=== PATIENT | female | born 1960 | race Caucasian/White ===

== ENCOUNTER → 2022-04-07 | Outpatient (CLI) | payer MEDICARE, OTHER, SELFPAY ==
[2022-04-07 15:11] LABS: Absolute Lymphocyte Count 2.47 X10^3/uL (0.83-4.51); Absolute Neutrophil Count 3.7 X10^3/uL (2.0-7.7); Basophil# 0.02 X10^3/uL; Basophil% 0.3 % (0-1); Eosinophil# 0.08 X10^3/uL; Eosinophils% 1.2 % (0-5); Hematocrit 42.9 % (37-47); Hemoglobin 13.8 g/dL (12.0-15.0); Lymphocyte # 2.47 X10^3/ul (0.83-4.51); Lymphocyte % 36.5 % (19-41); Mean Corp Hgb Conc 32.2 g/dL (32-36); Mean Corpuscular Hgb 30.5 pg (27.0-32.0); Mean Corpuscular Volume 94.7 fL (81-99); Mean Platelet Vol. 10.6 fl (6.2-12.0); Monocyte# 0.52 X10^3/uL; Monocyte% 7.7 % (0-10); NRBC Flagged by Analyzer 0 % (0-5); Neutrophil # 3.67 X10^3/uL (2.7-7.7); Neutrophil % 54.2 % (47-70); Platelet Count 260 K/mm3 (150-450); RBC Distribution Width CV 12.3 % (11.6-14.6); Red Blood Count 4.53 M/mm3 (4.2-5.4); White Blood Count 6.8 K/mm3 (4.4-11.0)
[2022-04-07 15:12] LABS: Erythrocyte Sedimentation Rate 8 mm/hr (0-30)
[2022-04-07 15:16] LABS: Hemoglobin A1c 5.5 % (3.8-5.6)
[2022-04-07 15:34] LABS: Vitamin B12 650 pg/mL (211-911)
[2022-04-07 15:48] LABS: ALB/GLOB Ratio 1.2 RATIO (0.9-2.4); AST(SGOT) 19 U/L (15-37); Alanine Aminotransfer ALT/SGPT 27 U/L (13-56); Albumin, Serum 3.8 g/dL (3.2-5.0); Alkaline Phosphatase 85 U/L (45-117); Anion Gap 5 (5-15); BUN 21 mg/dL (7-18); BUN/Creat Ratio 22.9 RATIO (10-20); CRP < 2.90 mg/L (0.0-3.0); Calcium,Total 8.9 mg/dL (8.5-10.1); Chloride 105 mmol/L (98-107); Creatinine, Serum 0.92 mg/dL (0.55-1.02); EST Glomerular Filtration Rate 66 mL/min (>60); Est Glom Filt Rate - Afr Amer 80 mL/min (>60); Free T3 3.3 pg/mL (2.18-3.98); Globulin 3.2 g/dL (2.2-4.2); Glucose 84 mg/dL (74-106); LDH 179 U/L (84-246); Potassium 3.5 mmol/L (3.5-5.1); Sodium Level 140 mmol/L (136-145); T4 Free Direct 0.89 ng/dL (0.76-1.46); Thyroid Stim Hormone (TSH) 1.89 uIU/mL (0.358-3.74)
[2022-04-10 13:07] LABS: Endomysial Antibody IgA Negative (Negative)
[2022-04-10 15:07] LABS: Anti-Centromere B Ab <0.2 AI (0.0-0.9); Anti-Chromatin <0.2 AI (0.0-0.9); Anti-Jo <0.2 AI (0.0-0.9); Anti-Scleroderma-70 AB <0.2 AI (0.0-0.9); RNP Ab 4.1 AI (0.0-0.9); SJOGREN'S Anti-SS-A test < 0.2 AI (0.0-0.9); SJOGREN'S Anti-SS-B test < 0.2 AI (0.0-0.9); Smith Ab <0.2 AI (0.0-0.9)
[2022-04-11 15:12] LABS: Anti-dsDNA Ab 1 IU/mL (0-9)
[2022-04-11 15:15] LABS: Immunoglobulin A 97 mg/dL (87-352); t-Transglutaminase IgA <2 U/mL (0-3)
[2022-04-12 08:09] LABS: Albumin 3.9 g/dL (2.9-4.4); Alpha-1-Globulins 0.2 g/dL (0.0-0.4); Alpha-2-Globulins 0.7 g/dL (0.4-1.0); Cytoplasmic Ab (C-ANCA) <1:20 titer (Neg:<1:20); HEPATITIS B SURFACE AG Negative (Negative); Hep C Antibodies <0.1 s/co ratio (0.0-0.9); Hepatitis A IgM Antibody Negative (Negative); Hepatitis B Core AB IgM Negative (Negative); Immunoglobulin A 97 mg/dL (87-352); Immunoglobulin G 920 mg/dL (586-1602); Immunoglobulin M 62 mg/dL (26-217); PROEL- TOTAL PROTEIN 6.5 g/dL (6.0-8.5)
[2022-04-12 13:10] LABS: Immunoglobulin E 138 IU/mL (6-495); Perinuclear Ab (P-ANCA) <1:20 titer (Neg:<1:20)
== END | disposition home or self-care (01) ==
PROVIDERS: Visit Provider Internal Medicine Gastroenterology
DX: R11.2 Nausea with vomiting, unspecified (principal)
CPT/HCPCS: 36415; 80053; 80074; 82607; 82784; 82785; 83036; 83516; 83615; 84165; 84439; 84443; 84481; 85025; 85652; 86140; 86225; 86235; 86255; 86256; 86334

== ENCOUNTER 2022-04-13 05:23 | Day surgery (SDC) | payer MEDICARE, OTHER, SELFPAY ==
[2022-04-13] VITALS (7 sets, daily range): BP systolic 92–104; BP diastolic 67–72; PULSE 65–74; RESP 14–18; TEMP 36.6–36.9; O2SAT 97–100; BMI 24.9
[2022-04-13] MEDS: Lactated Ringers 1,000 ML 15 ML IV (05:53)
--- NOTE | 2022-04-13 06:30 | IMM_PTH ---
PATIENT: PERRY KHAN LOC: EN U#:[id number] AGE/SX: 61/F ROOM: RE04/13/[address]: Dr. Shadi Hernández DO : 1960 BED: DIS: 04/13/2022 SPEC #: [id number] RECD: 04/13/22 13:44 STATUS: DEVENDRA REQ #: [id number] NORA: 04/13/22 06:[address]: Shadi Hernández DEPT: IMMUNOHISTOCHEMISTRY RECD BY: Oriana Dyson ENTERED: 04/13/22 13:45 SP TYPE: IMMUNO OTHR DR: Gi Primary Care Phys Tissues: A - Stomach, NOS Procedures: H Pylori (initial) PHYSICIAN & INSTITUTION [place] [address] SPECIMEN INFORMATION: Tissue Source: A ? Gastric body Clinical Info: Nausea and vomiting Specimen Number: [id number] CPT code: 84980 METHODOLOGY: Deparaffinized sections of prefer/formalin-fixed tissue or PAP/DQ stained slides are incubated with monoclonal/polyclonal antibodies/oligonucleotide probes. Localization is made via biotin free immunoperoxidase method. Appropriate controls are performed and reacted as expected. Results on target cell population are indicated in the following table: RESULTS: ANTIBODY / CLONE RESULT Block A H Pylori (polyclonal) positive These tests were developed and their performance characteristics determined by [facility]. They may not have been cleared or approved by the U.S. Food and Drug Administration. The FDA has determined that such clearance or approval is not necessary. The above immunohistochemical/dualISH markers are ordered and reviewed by the Pathologist. INTERPRETATION: A. Gastric body, biopsy: Positive for Helicobacter pylori organisms. AM:tiana 04/14/2022
--- NOTE | 2022-04-13 06:30 | EGD_PTH ---
PATIENT: PERRY KHAN LOC: EN U#:[id number] AGE/SX: 61/F ROOM: RE04/13/[address]: Dr. Shadi Hernández DO : 1960 BED: DIS: 04/13/2022 SPEC #: [id number] RECD: 04/13/22 09:08 STATUS: DEVENDRA REPawan #: [id number] NORA: 04/13/22 06:[address]: Shadi Hernández DEPT: SURGICAL PATHOLOGY RECD BY: Marianna Fernandez ENTERED: 04/13/22 10:43 SP TYPE: EGD BIOPSY OT DR: Gi Primary Care Phys Tissues: A - Gastric mucous membrane B - Gastric mucous membrane C - Duodenum, NOS D - Esophagus, NOS Procedures: Surgery Specimen Level IV HEADER OPERATION: EGD (MAC) and biopsy and dilatation PRE-OP DIAGNOSIS: Nausea and vomiting TISSUE SUBMITTED: A ? Gastric body, B ? Gastric cardia, C ? Duodenum, D ? Distal esophagus MICROSCOPIC DIAGNOSIS A. Gastric body, biopsy: Chronic gastritis, marked. Positive for Helicobacter pylori organisms. See comment. B. Gastric cardia, biopsy: Chronic gastritis, marked. See comment. C. 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 D. Distal esophagus, biopsy: Gastroesophageal junctional mucosa with chronic inflammation. Focal changes of reflux. Focal goblet cell metaplasia. No evidence of dysplasia. AM:tiana 04/14/2022 COMMENT A. The results of immunohistochemistry for Helicobacter pylori will be reported separately ([id number]). B. Rare neutrophils are seen in glandular epithelium. D. Alcian blue/PAS stain with matched control supports the above diagnosis. MICROSCOPIC DESCRIPTION Slides are reviewed. GROSS DESCRIPTION A - Received in fixative is one container labeled with the patient's name and designated gastric body. The specimen consists of two irregular fragments of light phillips soft tissue that in aggregate measure 0.6 x 0.5 x 0.1 cm. The specimen is totally submitted in one cassette. B - Received in fixative is one container labeled with the patient's name and designated gastric cardiac biopsy. The specimen consists of multiple irregular fragments of light phillips soft tissue that in aggregate measure 0.7 x 0.7 x 0.1 cm. The specimen is totally submitted in one cassette. C - Received in fixative is one container labeled with the patient's name and designated duodenum biopsy. The specimen consists of one irregular fragment of light phillips soft tissue that measures 0.7 x 0.2 x 0.1 cm. The specimen is totally submitted in one cassette. D - Received in fixative is one container labeled with the patient's name and designated distal esophagus biopsy. The specimen consists of two irregular fragments of light phillips soft tissue that in aggregate measure 1 x 0.5 x 0.1 cm. The specimen is totally submitted in one cassette. / AM:tiana 04/13/2022 TC:3 CPT: 46460 x4, 40981
--- NOTE | 2022-04-13 06:32 | PCM.HP.BLA ---
History and Physical Date of Admission: 04/13/22 PERRY KHAN, is a 61 F who presents to the office today for Initial consult. Bonny established with this clinic 04.07.22. GI Hx H.pylori infection PMH Thromboangiitis PSH hysterectomy; cholecystectomy EGD history noting hiatal hernia, peptic ulcer disease, GERD. Reports 12-15 EGD with positive H.Pylori. Last EGD approximately 7 years prior. ? H.Pylori has been treated with antibiotics regularly throughout the years. Gnawing pain in stomach, gassy and belching, nausea, bloating. Foods and pills have been getting stuck, reports strictures in her esophagus and has undergone dilation approximately 12 times throughout the years. She does not wish to pursue screening colonoscopy ROS Const Constitutional: No anorexia, fatigue, fever(s), weight change or sleep problems Eyes Eyes: No change in vision ENT ENT: No abnormal hearing, difficulty swallowing, mouth lesions, tongue swelling or throat swelling Resp Respiratory: No cough or shortness of breath Cardio Cardiology: No chest pain at rest, chest pain with exertion, shortness of breath or dyspnea on exertion Gastro GI: No difficulty swallowing Genitourinary-Female: No difficulty urinating or burning urination Musc Musculoskeletal: No joint pain, joint swelling, muscle weakness or decreased muscle mass Skin Skin: No hair loss in leg, yellowing of the eye, itchy eyes, rash, skin ulcer or skin swelling Neuro Neurology: No abnormal hearing, abnormal movements, confusion, unsteady gait/balance or memory loss Psych Psychiatric: No anxiety, No confusion and No memory loss Endo Endocrine: No fatigue or weight change Aller/Imm Allergy/Immunologic: No itchy eyes, throat swelling or tongue swelling Kody/Lymp Hematologic/Lymphatic: No easy bleeding, easy bruising or enlarged lymph nodes Exam Const General: cooperative and comfortable Nutritional Appearance: average body habitus and well nourished HENMT Head: normal to inspection Ears: hearing grossly normal bilaterally Nose: external nose normal Face and sinus: normal facial exam Mouth: oral mucosae normal Throat: posterior oropharynx normal Eyes General: appearance normal, both eyes and all related structures Neck Neck: normal visual inspection Chest Chest palpation & inspection: normal inspection of the chest and normal palpation of entire chest wall Resp Effort & Inspection: normal respiratory effort Auscultation: Bilateral: Clear to Auscultation Cardio Palpation: normal PMI Rate: regular rate Rhythm: regular rhythm GI Inspection: normal to inspection Auscultation: normal bowel sounds Percussion: normal to percussion Palpation: no hepatosplenomegaly Skin General: no rashes or lesions noted Neuro General: patient alert Extrem General: normal to inspection Psych Affect: normal affect Assessment and Plan Assessment and Plan (1) Nausea & vomiting: ?Status:?Acute ?Plan: The differential diagnosis for her nausea vomiting could be secondary to previous diagnosis of bulimia and constant nausea vomiting.? Also on the differential diagnosis could include gastroparesis, food allergies, eosinophilic gastroenteritis or anxiety disorder.? We will get a gastric emptying study along with a biochemical work-up to make sure she does not have any autoimmune disease that may affect her upper GI tract. (2) H. pylori infection: ?Status:?Acute ?Plan: Recurrent H. pylori infection.? She will undergo an upper endoscopy with biopsies in all 5 quadrants to see if it is primarily located in a certain area of the stomach.? If it is she can undergo ablation of that particular area.? We will also sample the small bowel. ? ? ? Orders: Orders Vitamin B12 Today R11.2 - Nausea with vomiting, unspecified ? Comprehensive Metabolic Profil Today R11.2 - Nausea with vomiting, unspecified ? CRP Today R11.2 - Nausea with vomiting, unspecified ? Free T3 Today R11.2 - Nausea with vomiting, unspecified ? LDH Today R11.2 - Nausea with vomiting, unspecified ? T4 Free Direct Today R11.2 - Nausea with vomiting, unspecified ? Thyroid Stim Hormone (TSH) Today R11.2 - Nausea with vomiting, unspecified ? CBC W/Diff, Automated Today R11.2 - Nausea with vomiting, unspecified ? Erythrocyte Sed Rate Today R11.2 - Nausea with vomiting, unspecified ? AMBER Comprehensive Panel Today R11.2 - Nausea with vomiting, unspecified ? ANCA Today R11.2 - Nausea with vomiting, unspecified ? Celiac Disease Profile Today R11.2 - Nausea with vomiting, unspecified ? Immunoglobulin E Today R11.2 - Nausea with vomiting, unspecified ? Hemoglobin A1c Today R11.2 - Nausea with vomiting, unspecified ? Hepatitis Panel Acute Today R11.2 - Nausea with vomiting, unspecified ? MASSIEL + Protein Elect, Serum Today R11.2 - Nausea with vomiting, unspecified ? Gastric Emptying Study Today R11.2 - Nausea with vomiting, unspecified ? I have examined the patient and the H&P has been reviewed. There are no clinical changes since date of exam.
--- NOTE | 2022-04-13 06:55 | OP.CCLET_ITS ---
04/13/2022 No Primary Care Physician Re : Upper GI endoscopy procedure for Maria T Navarro Dear Care Physician This procedure was performed on April. My impressions and recommendations are as follows: Impressions : - LA Grade A reflux esophagitis. Biopsied. - Moderate Schatzki ring. Dilated. - Gastritis. Biopsied. - Erythematous duodenopathy. Biopsied. No specimens collected. Recommendations : - Discharge patient to home. - Resume previous diet. - Continue present medications. - Await pathology results. - Use Protonix (pantoprazole) 40 mg PO BID for 8 weeks. My findings are described in the full procedure note, which is enclosed. If I can be of further assistance, please feel free to contact me at . Sincerely, Shadi Hernández, 04/13/2022 6:54:17 AM This report has been signed electronically.
--- NOTE | 2022-04-13 06:55 | OP.EGD_ITS ---
Patient Name: Maria T Navarro Procedure Date: 04/13/2022 6:15 AM Date of : 1960 Age: 61 Procedure: Upper GI endoscopy Indications: Dysphagia, Heartburn, Failure to respond to medical treatment, Positive test for Helicobacter pylori Providers: Shadi Hernández DO Medicines: Monitored Anesthesia Care Patient Profile: This is a 61 year old female. Refer to note in patient chart for documentation of history and physical. Patient has symptoms of chronic heartburn and chronic nausea. Complications: No immediate complications. Procedure: Pre-Anesthesia Assessment: - Prior to the procedure, a History and Physical was performed, and patient medications and allergies were reviewed. The patient is competent. The risks and benefits of the procedure and the sedation options and risks were discussed with the patient. All questions were answered and informed consent was obtained. Patient identification and proposed procedure were verified by the physician in the pre-procedure area. Mental Status Examination: alert and oriented. Airway Examination: normal oropharyngeal airway and neck mobility. Respiratory Examination: clear to auscultation. CV Examination: normal. Prophylactic Antibiotics: The patient does not require prophylactic antibiotics. Prior Anticoagulants: The patient has taken no previous anticoagulant or antiplatelet agents. ASA Grade Assessment: II - A patient with mild systemic disease. After reviewing the risks and benefits, the patient was deemed in satisfactory condition to undergo the procedure. The anesthesia plan was to use monitored anesthesia care (MAC). Immediately prior to administration of medications, the patient was re-assessed for adequacy to receive sedatives. The heart rate, respiratory rate, oxygen saturations, blood pressure, adequacy of pulmonary ventilation, and response to care were monitored throughout the procedure. The physical status of the patient was re-assessed after the procedure. After obtaining informed consent, the endoscope was passed under direct vision. Throughout the procedure, the patient's blood pressure, pulse, and oxygen saturations were monitored continuously. The gastroscope was introduced through the mouth, and advanced to the second part of duodenum. The upper GI endoscopy was accomplished without difficulty. The patient tolerated the procedure well. Scope In: 6:38:55 AM Scope Out: 6:45:44 AM Total Procedure Duration Time 0 hours 6 minutes 49 seconds Findings: LA Grade A (one or more mucosal breaks less than 5 mm, not extending between tops of 2 mucosal folds) esophagitis with no bleeding was found 36 to 38 cm from the incisors. Biopsies were taken with a cold forceps for histology. Verification of patient identification for the specimen was done. Estimated blood loss was minimal. A moderate Schatzki ring was found in the lower third of the esophagus. A guidewire was placed and the scope was withdrawn. Dilation was performed with a Savary dilator with no resistance at 60 Fr. The dilation site was examined and showed complete resolution of luminal narrowing. Estimated blood loss was minimal. Scattered moderate inflammation characterized by congestion (edema) was found in the cardia and in the gastric body. Biopsies were taken with a cold forceps for histology. Verification of patient identification for the specimen was done. Estimated blood loss was minimal. Patchy mildly erythematous mucosa without active bleeding and with no stigmata of bleeding was found in the duodenal bulb and in the first portion of the duodenum. Biopsies were taken with a cold forceps for histology. No biopsies or other specimens were collected for this exam. Impression: - LA Grade A reflux esophagitis. Biopsied. - Moderate Schatzki ring. Dilated. - Gastritis. Biopsied. - Erythematous duodenopathy. Biopsied. No specimens collected. Recommendation: - Discharge patient to home. - Resume previous diet. - Continue present medications. - Await pathology results. - Use Protonix (pantoprazole) 40 mg PO BID for 8 weeks. Procedure Code(s): --- Professional --- 47245, Esophagogastroduodenoscopy, flexible, transoral; with insertion of guide wire followed by passage of dilator(s) through esophagus over guide wire 96880, 59, Esophagogastroduodenoscopy, flexible, transoral; with biopsy, single or multiple CPT copyright 2017 [employer]. All rights reserved. The codes documented in this report are preliminary and upon component assembler supervisor review may be revised to meet current compliance requirements. Shadi Hernández DO 04/13/2022 6:54:17 AM This report has been signed electronically. Number of Addenda: 0 Note Initiated On: 04/13/2022 6:15 AM
== END 2022-04-13 07:54 | disposition home or self-care (01) ==
LOC: EN 05:25 → AC 05:26
PROVIDERS: Visit Provider Internal Medicine Gastroenterology
PROC: 0DJ08ZZ Inspection of Upper Intestinal Tract, Via Natural or Artificial Opening Endoscopic (ICD-10-PCS; CPT 43235; principal; 2022-04-13 06:25)
DX: K22.2 Esophageal obstruction (principal); K21.00 Gastro-esophageal reflux disease with esophagitis, without bleeding; B96.81 Helicobacter pylori [H. pylori] as the cause of diseases classified elsewhere; K29.50 Unspecified chronic gastritis without bleeding; R13.10 Dysphagia, unspecified
CPT/HCPCS: 43248; 43239; 88305; 88342; J7120; C1769; J2405

== ENCOUNTER → 2022-10-27 | Outpatient (CLI) | payer MEDICARE, OTHER, SELFPAY | END | disposition home or self-care (01) | LOC: LAB 13:53 | PROVIDERS: Referring Provider Internal Medicine Gastroenterology; Visit Provider Internal Medicine Gastroenterology | DX: A04.8 Other specified bacterial intestinal infections (principal) ==

== ENCOUNTER 2022-11-17 12:47 | Day surgery (SDC) | payer MEDICARE, OTHER, SELFPAY ==
--- NOTE | 2022-11-17 | IMM_PTH ---
PATIENT: PERRY KHAN LOC: EN U#:[id number] AGE/SX: 61/F ROOM: RE11/17/[address]: Dr. Shadi Hernández DO : 1960 BED: DIS: 11/17/2022 SPEC #: [id number] RECD: 11/20/22 14:48 STATUS: DEVENDRA REPawan #: [id number] NORA: 11/17/22 00:[address]: Shadi Hernández DEPT: IMMUNOHISTOCHEMISTRY RECD BY: Alejandra Virk ENTERED: 11/20/22 14:48 SP TYPE: IMMUNO OTHR DR: Gi Primary Care Phys Tissues: Gastric mucous membrane Procedures: H Pylori (initial) PHYSICIAN & INSTITUTION [place] [address] SPECIMEN INFORMATION: Tissue Source: Gastric body Clinical Info: H.pylori infection Specimen Number: [id number] CPT code: 42707 METHODOLOGY: Deparaffinized sections of prefer/formalin-fixed tissue or PAP/DQ stained slides are incubated with monoclonal/polyclonal antibodies/oligonucleotide probes. Localization is made via biotin free immunoperoxidase method. Appropriate controls are performed and reacted as expected. Results on target cell population are indicated in the following table: RESULTS: ANTIBODY / CLONE RESULT H Pylori (polyclonal) positive These tests were developed and their performance characteristics determined by [facility]. They may not have been cleared or approved by the U.S. Food and Drug Administration. The FDA has determined that such clearance or approval is not necessary. The above immunohistochemical/dualISH markers are ordered and reviewed by the Pathologist. INTERPRETATION: Gastric body, biopsy: Positive for numerous Helicobacter pylori organisms. SJ:chito 11/22/22
[2022-11-17] MEDS: Lactated Ringers 1,000 ML 15 ML IV (13:13)
[2022-11-17 13:14] VITALS: BP 106/63; PULSE 75; RESP 18; TEMP 37.1; O2SAT 100; BMI 24.8
--- NOTE | 2022-11-17 13:50 | HP.PCM_ITS ---
History and Physical Date of Admission: 11/17/22 PERRY KHAN, is a 61 F who presents to the office today for GI Hx H.pylori infection. PMH Thromboangiitis. PSH hysterectomy; cholecystectomy EGD history noting hiatal hernia, peptic ulcer disease, GERD. *[facility] established 04.07.22. Reports 12-15 EGDs with positive H.Pylori. Last EGD approximately 7 years prior. ? H.Pylori has been treated with antibiotics regularly throughout the years. Gnawing pain in stomach, gassy and belching, nausea, bloating. Foods and pills have been getting stuck, reports strictures in her esophagus and has undergone dilation approximately 12 times throughout the years. Biochemical workup GAME, MASSIEL, hepatitis, ANCA, CBC, ESR, CMP, A1c, LDH, CRP, Vit B12, TSH, T3, T4, celiac without pertinent abnormality. GLACING MACHINE TENDER Ab H4.1 Refer to rheumatology, Dr. De La Cruz. Dr. De La Cruz attempted to schedule apt but calls were not returned. EGD 04.13.22 noting LA Grade A reflux esophagitis, metaplasia; Moderate Schatzki ring, Savary dilator 60F; gastritis, H.Pylori +; erythematous duodenopathy, Hannah gland hyperplasia. Protonix 40mg BID taper. 04.17.22 peptobismol Q8H, Clarithromycin 500mg BID, flagyl 375 Q8H. Flagyl expensive. Changed to amoxicillin. ? Follow up scheduled for 06.21.22 which was rescheduled to a later time. OV 10.27.22 continues to have bloating, pain and heartburn similar as to initial presentation. Reports H.Pylori for the last 20 years. ROS Const Constitutional: No anorexia, fatigue, fever(s), weight change or sleep problems Eyes Eyes: No change in vision ENT ENT: No abnormal hearing, difficulty swallowing, mouth lesions, tongue swelling or throat swelling Resp Respiratory: No cough or shortness of breath Cardio Cardiology: No chest pain at rest, chest pain with exertion, shortness of breath or dyspnea on exertion Gastro GI: No difficulty swallowing Genitourinary-Female: No difficulty urinating or burning urination Musc Musculoskeletal: No joint pain, joint swelling, muscle weakness or decreased muscle mass Skin Skin: No hair loss in leg, yellowing of the eye, itchy eyes, rash, skin ulcer or skin swelling Neuro Neurology: No abnormal hearing, abnormal movements, confusion, unsteady gait/balance or memory loss Psych Psychiatric: No anxiety, No confusion and No memory loss Endo Endocrine: No fatigue or weight change Aller/Imm Allergy/Immunologic: No itchy eyes, throat swelling or tongue swelling Kody/Lymp Hematologic/Lymphatic: No easy bleeding, easy bruising or enlarged lymph nodes Exam Const General: cooperative and comfortable Nutritional Appearance: average body habitus and well nourished HENMT Head: normal to inspection Ears: hearing grossly normal bilaterally Nose: external nose normal Face and sinus: normal facial exam Mouth: oral mucosae normal Throat: posterior oropharynx normal Eyes General: appearance normal, both eyes and all related structures Neck Neck: normal visual inspection Chest Chest palpation & inspection: normal inspection of the chest and normal palpation of entire chest wall Resp Effort & Inspection: normal respiratory effort Auscultation: Bilateral: Clear to Auscultation Cardio Palpation: normal PMI Rate: regular rate Rhythm: regular rhythm GI Inspection: normal to inspection Auscultation: normal bowel sounds Percussion: normal to percussion Palpation: no hepatosplenomegaly Skin General: no rashes or lesions noted Neuro General: patient alert Extrem General: normal to inspection Psych Affect: normal affect Quality Reporting Tobacco Screening ([facility] 138) Smoking Status: Never smoker Assessment and Plan Assessment and Plan (1) H. pylori infection: Status: Chronic Plan: She underwent an upper endoscopy and was diagnosed again with H. pylori associated gastritis. She does have anti-GLACING MACHINE TENDER antibodies that I believe are autoantibody secondary to chronic H. pylori infection over 30 years. I want to get antibiotic susceptibility testing but we might have to do that with a grow specimen and not with a blood culture for H. pylori. For now we will run a culture for H. pylori and check to the [facility] test for susceptibility testing. Orders: Orders Miscellaneous Lab Procedure Today R76.8 - Other specified abnormal immunological findings in serum I have examined the patient and the H&P has been reviewed. There are no clinical changes since date of exam.
--- NOTE | 2022-11-17 14:00 | EGD_PTH ---
PATIENT: PERRY KHAN LOC: EN U#:[id number] AGE/SX: 61/F ROOM: RE11/17/[address]: Dr. Shadi Hernández DO : 1960 BED: DIS: 11/17/2022 SPEC #: [id number] RECD: 11/17/22 17:40 STATUS: DEVENDRA REQ #: [id number] NORA: 11/17/22 14:[address]: Shadi Hernández DEPT: SURGICAL PATHOLOGY RECD BY: Marianna Fernandez ENTERED: 11/20/22 08:39 SP TYPE: EGD BIOPSY OT DR: Gi Primary Care Phys Tissues: Gastric mucous membrane Procedures: Surgery Specimen Level IV HEADER OPERATION: EGD with biopsies PRE-OP DIAGNOSIS: H.pylori infection TISSUE SUBMITTED: Gastric body biopsy MICROSCOPIC DIAGNOSIS Gastric body biopsy: Moderate chronic active gastritis. See comment. SJ: 11/21/2022 COMMENT The results of immunohistochemistry for Helicobacter pylori will be reported separately ([id number]). MICROSCOPIC DESCRIPTION Slides are reviewed. GROSS DESCRIPTION Received is one container labeled with the patient name and designated gastric body. The specimen consists of multiple irregular fragments of light phillips soft tissue that in aggregate measure 0.8 x 0.4 x 0.1 cm. The specimen is totally submitted in one cassette. / SJ: 11/20/22 TC:2 CPT:36779
--- NOTE | 2022-11-17 14:13 | OP.EGD_ITS ---
Patient Name: Maria T Navarro Procedure Date: 11/17/2022 1:55 PM Date of : 1960 Age: 61 Procedure: Upper GI endoscopy Indications: Epigastric abdominal pain, Helicobacter pylori Providers: Shadi Hernández DO Referring MD: No Primary Care Physician Patient Profile: This is a 61 year old female. Refer to note in patient chart for documentation of history and physical. Patient has symptoms. The symptoms first began in the remote past. She is status post EGD for biopsy within the past three months. Complications: No immediate complications. Procedure: Pre-Anesthesia Assessment: - Prior to the procedure, a History and Physical was performed, and patient medications and allergies were reviewed. The patient is competent. The risks and benefits of the procedure and the sedation options and risks were discussed with the patient. All questions were answered and informed consent was obtained. Patient identification and proposed procedure were verified by the physician. Mental Status Examination: normal. Prophylactic Antibiotics: The patient does not require prophylactic antibiotics. Prior Anticoagulants: The patient has taken no previous anticoagulant or antiplatelet agents. ASA Grade Assessment: II - A patient with mild systemic disease. After reviewing the risks and benefits, the patient was deemed in satisfactory condition to undergo the procedure. The anesthesia plan was to use monitored anesthesia care (MAC). Immediately prior to administration of medications, the patient was re-assessed for adequacy to receive sedatives. The heart rate, respiratory rate, oxygen saturations, blood pressure, adequacy of pulmonary ventilation, and response to care were monitored throughout the procedure. The physical status of the patient was re-assessed after the procedure. After obtaining informed consent, the endoscope was passed under direct vision. Throughout the procedure, the patient's blood pressure, pulse, and oxygen saturations were monitored continuously. The gastroscope was introduced through the mouth, and advanced to the second part of duodenum. The upper GI endoscopy was accomplished without difficulty. The patient tolerated the procedure well. Scope In: 2:04:18 PM Scope Out: 2:09:19 PM Total Procedure Duration Time 0 hours 5 minutes 1 second Findings: The examined esophagus was normal. Diffuse moderate inflammation characterized by congestion (edema), erosions, erythema and friability was found in the entire examined stomach. Biopsies were taken with a cold forceps for Helicobacter pylori testing. Verification of patient identification for the specimen was done. Estimated blood loss was minimal. No gross lesions were noted in the duodenal bulb. Impression: - Normal esophagus. - Chronic gastritis. Biopsied. - No gross lesions in the duodenal bulb. Recommendation: - Discharge patient to home. - Resume previous diet. - Continue present medications. - Await pathology results. Procedure Code(s): --- Professional --- 16935, Esophagogastroduodenoscopy, flexible, transoral; with biopsy, single or multiple CPT copyright 2017 [employer]. All rights reserved. The codes documented in this report are preliminary and upon construction site manager review may be revised to meet current compliance requirements. Shadi Hernández DO 11/17/2022 2:13:30 PM This report has been signed electronically. Number of Addenda: 0 Note Initiated On: 11/17/2022 1:55 PM
--- NOTE | 2022-11-17 14:14 | OP.CCLET_ITS ---
11/17/2022 No Primary Care Physician Re : Upper GI endoscopy procedure for Maria T Navarro Dear Care Physician This procedure was performed on Thursday, November 17, 2022. My impressions and recommendations are as follows: Impressions : - Normal esophagus. - Chronic gastritis. Biopsied. - No gross lesions in the duodenal bulb. Recommendations : - Discharge patient to home. - Resume previous diet. - Continue present medications. - Await pathology results. My findings are described in the full procedure note, which is enclosed. If I can be of further assistance, please feel free to contact me at . Sincerely, Shadi Hernández, 11/17/2022 2:13:30 PM This report has been signed electronically.
[2022-11-17 14:15] VITALS: BP 106/63; BP 99/62; PULSE 77; RESP 16; TEMP 36.6; O2SAT 94
[2022-11-17 14:20] VITALS: BP 100/60; BP 106/63; PULSE 64; RESP 16; O2SAT 95
[2022-11-17 14:25] VITALS: BP 101/69; BP 106/63; PULSE 73; RESP 16; O2SAT 97
[2022-11-17 14:29] VITALS: BP 106/63; BP 99/61; PULSE 70; RESP 16; TEMP 36.5; O2SAT 99
[2022-11-17 14:42] VITALS: BP 106/63
== END 2022-11-17 14:51 | disposition home or self-care (01) ==
LOC: EN 12:47 → AC 12:49
PROVIDERS: Visit Provider Internal Medicine Gastroenterology
PROC: 0DJ08ZZ Inspection of Upper Intestinal Tract, Via Natural or Artificial Opening Endoscopic (ICD-10-PCS; CPT 43235; principal; 2022-11-17 13:55)
DX: K29.50 Unspecified chronic gastritis without bleeding (principal); B96.81 Helicobacter pylori [H. pylori] as the cause of diseases classified elsewhere; Z90.49 Acquired absence of other specified parts of digestive tract
CPT/HCPCS: 43239; 88305; 88342; J7120; J2405

== ENCOUNTER → 2022-12-19 | Outpatient (CLI) | payer MEDICARE, OTHER, SELFPAY ==
[2022-12-19 14:27] LABS: Absolute Lymphocyte Count 2.68 X10^3/uL (0.83-4.51); Absolute Neutrophil Count 2.8 X10^3/uL (2.0-7.7); Basophil# 0.02 X10^3/uL; Basophil% 0.3 % (0-1); Eosinophil# 0.07 X10^3/uL; Eosinophils% 1.1 % (0-5); Hematocrit 44.1 % (37-47); Hemoglobin 14.1 g/dL (12.0-15.0); Lymphocyte # 2.68 X10^3/ul (0.83-4.51); Lymphocyte % 43.2 % (19-41); Mean Corpuscular Hgb 30.8 pg (27.0-32.0); Mean Corpuscular Volume 96.3 fL (81-99); Mean Platelet Vol. 10.7 fl (6.2-12.0); Monocyte# 0.63 X10^3/uL; Monocyte% 10.2 % (0-10); NRBC Flagged by Analyzer 0 % (0-5); Neutrophil # 2.79 X10^3/uL (2.7-7.7); Platelet Count 241 K/mm3 (150-450); RBC Distribution Width CV 12.4 % (11.6-14.6); RBC Distribution Width SD 43.9 fl (35.1-43.9); Red Blood Count 4.58 M/mm3 (4.2-5.4); White Blood Count 6.2 K/mm3 (4.4-11.0)
== END | disposition home or self-care (01) ==
LOC: LAB 13:52
PROVIDERS: Referring Provider Internal Medicine Gastroenterology; Visit Provider Internal Medicine Gastroenterology
DX: A04.8 Other specified bacterial intestinal infections (principal)
CPT/HCPCS: 36415; 85025